=== PATIENT | female | born 1985 | race Caucasian/White ===

== ENCOUNTER 2020-08-08 08:03 | Observation (INO) | END 2020-08-08 09:48 | disposition home or self-care (01) | LOC: 1NENULAB | PROVIDERS: ADMIT Student in an Organized Health Care Education/Training Program; ATTEND Student in an Organized Health Care Education/Training Program ==

== ENCOUNTER 2020-08-12 10:49 | Inpatient (IN) ==
[~2020-08-12 10:49] MED LIST: *HR* FentaNYL (PF) 100 MCG/2 ML VIAL IVP PRN; Azithromycin 500 MG in 0.9 % Sodium Chloride 250 ML IVPB ONE; Famotidine 20 MG/2 ML VIAL IVP PRN; Lidocaine 1% 20 ML MDV ID PRN; Metoclopramide 10 MG/2 ML VIAL IVP PRN; Naloxone 0.4 MG/ML INJ IVP PRN; Ondansetron 4 MG/2 ML VIAL IVP PRN; Oxytocin 20 units/ LR 1000 mL 20 UNIT/1,000 ML BAG IVC SCH; Ringers Solution, Lactated 1,000 ML IVC SCH
[2020-08-12 11:42] LABS: Basophils # 0.1 K/mcL (0.0-0.2); Basophils % 0.6 %; Eosinophils % 0.5 %; Hematocrit 37.1 % (35.3-44.9); Hemoglobin 12.3 g/dL (11.5-15.4); Immature Granulocytes % 0.4 % (0-4); Lymphocytes # 1.8 K/mcL (0.6-4.6); Lymphocytes % 21.8 %; Mean Corpuscular HGB Conc 33.2 g/dL (31.6-35.5); Mean Corpuscular Hemoglobin 27.8 pg (28.0-33.3); Mean Corpuscular Volume 83.9 fL (83.0-100.0); Mean Platelet Volume 11.1 fL (9.4-12.4); Monocytes # 0.6 K/mcL (0.0-1.3); Monocytes % 6.9 %; Neutrophils # 5.6 K/mcL (1.6-8.9); Platelet Count 193 K/mcL (140-400); Red Blood Count 4.42 M/mcL (3.82-4.97); Red Cell Distribution Width 13.4 % (11.5-14.5); Segmented Neutrophils % 69.8 %; White Blood Count 8.1 K/mcL (4.3-11.1)
[2020-08-12] MEDS ORDERED: *HR* FentaNYL (PF) 100 MCG/2 ML VIAL EP ONE (12:12)
[2020-08-12] MEDS ORDERED: EPHEDrine 50 MG/ML VIAL IVP PRN (12:12)
[2020-08-12] MEDS ORDERED: Epidural Premix (fent/bupiv) 110 ML EP SCH (12:15)
[2020-08-12] MEDS ORDERED: Famotidine 20 MG/2 ML VIAL IVP ONE (12:24)
[2020-08-12 13:37] LABS: Amphetamine Screen,Urine Negative ng/mL (Cutoff=1000); Barbiturate Screen,Urine Negative ng/mL (Cutoff=200); Benzodiazepines Screen,Urine Negative ng/mL (Cutoff=200); Cannabinoid Screen,Urine Negative ng/mL (Cutoff = 50); Cocaine Screen,Urine Negative ng/mL (Cutoff= 300); Opiate Screen,Urine Negative ng/mL (Cutoff=300); Phencyclidine Screen,Urine Negative ng/mL (Cutoff=25)
[2020-08-12] MEDS ORDERED: Ringers Solution, Lactated 1,000 ML ONE (16:32)
[2020-08-12] MEDS ORDERED: Acetaminophen 325 MG TABLET PO ONE (17:24)
[2020-08-13] MEDS ORDERED: Lanolin 7 G OINT...G. TP PRN (01:53)
[2020-08-13] MEDS ORDERED: Measles/Mumps/Rubella Vacc 0.5 ML VIAL SQ PRN (01:53)
[2020-08-13] MEDS ORDERED: Oxytocin 20 units/ LR 1000 mL 20 UNIT/1,000 ML BAG IVC ONE (01:53)
[2020-08-13] MEDS ORDERED: Oxytocin 20 units/ LR 1000 mL 20 UNIT/1,000 ML BAG IVC SCH (01:53)
[2020-08-13] MEDS ORDERED: Rho Immune Globulin 1,500 UNIT SYRINGE IM PRN (01:53)
[2020-08-13] MEDS: Ibuprofen 600 MG TABLET PO PRN ×3 (07:47→20:00)
[2020-08-13] MEDS: Prenatal Vit/FA 1 EACH TABLET PO SCH (07:47)
[2020-08-13] MEDS ORDERED: Benzocaine/Menthol 56 GM AEROSOL SPRAY TP PRN (11:44)
[2020-08-13] MEDS: Acetaminophen 325 MG TABLET PO PRN ×2 (11:58→18:06)
[2020-08-14] MEDS: Acetaminophen 325 MG TABLET PO PRN ×2 (00:33→06:56)
[2020-08-14] MEDS: Ibuprofen 600 MG TABLET PO PRN ×2 (03:12→09:22)
[2020-08-14 07:46] VITALS: BP 127/79
[2020-08-14] MEDS: Prenatal Vit/FA 1 EACH TABLET PO SCH (09:22)
== END 2020-08-14 12:34 | disposition home or self-care (01) | DRG 807 ==
LOC: 1NENULAB → 1NENUOBS 08-13 01:52
PROVIDERS: ADMIT Obstetrics & Gynecology; ATTEND Obstetrics & Gynecology

== ENCOUNTER 2021-05-15 09:18 | Observation (INO) ==
[2021-05-15] MEDS ORDERED: Isovue-370 500 ML BOTTLE IVP ONE (09:57)
[2021-05-15 10:03] LABS: Basophils # 0.1 K/mcL (0.0-0.2); Basophils % 0.5 %; Eosinophils # 0.1 K/mcL (0.0-0.6); Eosinophils % 1.2 %; Hematocrit 41.3 % (35.3-44.9); Hemoglobin 13.8 g/dL (11.5-15.4); Immature Granulocytes % 0.3 % (0-4); Lymphocytes # 2.4 K/mcL (0.6-4.6); Lymphocytes % 20.5 %; Mean Corpuscular HGB Conc 33.4 g/dL (31.6-35.5); Mean Corpuscular Hemoglobin 28.3 pg (28.0-33.3); Mean Corpuscular Volume 84.8 fL (83.0-100.0); Mean Platelet Volume 9.9 fL (9.4-12.4); Monocytes # 0.6 K/mcL (0.0-1.3); Monocytes % 5.1 %; Neutrophils # 8.3 K/mcL (1.6-8.9); Platelet Count 343 K/mcL (140-400); Red Blood Count 4.87 M/mcL (3.82-4.97); Red Cell Distribution Width 12.4 % (11.5-14.5); Segmented Neutrophils % 72.4 %; White Blood Count 11.5 K/mcL (4.3-11.1)
[2021-05-15 10:16] LABS: Bilirubin,Urine Negative (Negative); Blood,Urine Negative (Negative); Clarity,Urine Clear (Clear); Color,Urine Light-Yellow (Yellow); Glucose,Urine (UA) Normal (Normal); Ketones,Urine Negative (Negative); Leukocyte Esterase,Urine Negative (Negative); Nitrite,Urine Negative (Negative); Protein,Urine Negative (Neg-Trace); Specific Gravity,Urine 1.011 (1.010-1.025); Urobilinogen,Urine Normal (Normal)
[2021-05-15 10:22] LABS: Alanine Aminotransferase 20 Units/L (7-52); Albumin 4.7 g/dL (3.5-5.7); Albumin/Globulin Ratio 1.7 (1.1-2.2); Alkaline Phosphatase 72 Units/L (34-104); Amylase 24 Units/L (29-103); Aspartate Amino Transferase 13 Units/L (13-39); BUN/Creatinine Ratio 11 (6-26); Bilirubin,Direct 0.1 mg/dL (0.0-0.2); Bilirubin,Indirect 0.7 mg/dL (0.0-1.0); Bilirubin,Total 0.8 mg/dL (0.3-1.0); Blood Urea Nitrogen 8 mg/dL (6-20); Calcium 9.8 mg/dL (8.6-10.3); Carbon Dioxide 29 mEq/L (23-29); Chloride 103 mEq/L (98-107); Globulin 2.8 g/dL (2.4-3.5); Glucose 117 mg/dL (70-105); Lipase 22 Units/L (11-82); Osmolality,Calculated 287 (280-300); Potassium 3.5 mEq/L (3.5-5.1); Sodium 139 mEq/L (136-145); Total Protein 7.5 g/dL (6.4-8.9); eGFR For African Americans > 60 (> 60); eGFR For Non-African Americans > 60 (> 60)
[2021-05-15] MEDS ORDERED: Piperacillin/Tazobactam 3.375 GM in Water for inj. (sterile) 20 ML IVP ONE (11:50)
[2021-05-15] MEDS ORDERED: 0.9 % Sodium Chloride 1,000 ML IVC SCH (12:00)
[2021-05-15] MEDS ORDERED: Ondansetron 4 MG/2 ML VIAL IVP PRN ×3 (14:03→21:24)
[2021-05-15] MEDS ORDERED: Pantoprazole 40 MG VIAL IVP SCH (14:15)
[2021-05-15] MEDS ORDERED: Acetaminophen IV 1,000 MG/100 ML BAG IVPB SCH (15:00)
[2021-05-15] MEDS ORDERED: Piperacillin/Tazobactam 3.375 GM in 0.9 % Sodium Chloride Mini Bag 100 ML IVPB SCH ×2 (16:00→20:00)
[2021-05-15] MEDS ORDERED: Acetaminophen IV 1,000 MG/100 ML BAG IVPB ONE (17:38)
[2021-05-15] MEDS ORDERED: Famotidine 20 MG/2 ML VIAL ONE (17:38)
[2021-05-15] MEDS ORDERED: Lidocaine HCL 4 ML Topical Solution (Laryng-O-Jet Kit Sterile Pak) TP ONE (17:50)
[2021-05-15] MEDS ORDERED: *HR* FentaNYL (PF) 100 MCG/2 ML VIAL ONE ×2 (17:50→19:30)
[2021-05-15] MEDS ORDERED: *HR* Propofol 200 MG/20 ML VIAL IVP ONE (17:51)
[2021-05-15] MEDS ORDERED: *HR* HYDROmorphone PF 0.5 MG/0.5 ML SYRINGE IVP PRN (17:51)
[2021-05-15] MEDS ORDERED: *HR* Midazolam HCl 2 MG/2 ML VIAL ONE (17:51)
[2021-05-15] MEDS ORDERED: *HR* Succinylcholine 200 MG/10 ML VIAL IVP ONE (17:52)
[2021-05-15] MEDS ORDERED: Lidocaine -MPF 2% 2 ML VIAL ONE (17:52)
[2021-05-15] MEDS ORDERED: *HR* Rocuronium Bromide 50 MG/5 ML VIAL ONE ×2 (17:52→19:19)
[2021-05-15] MEDS ORDERED: *HR* HYDROMORPHONE 2 MG/ML VIAL ONE ×2 (18:44→19:30)
[2021-05-15] MEDS ORDERED: Ketorolac 30 MG/ML VIAL ONE (18:58)
[2021-05-15] MEDS ORDERED: *HR* Labetalol 20 MG/4 ML SYRINGE IVP ONE (19:13)
[2021-05-15] MEDS ORDERED: Albuterol 2.5 MG/3 ML NEBULIZER IH ONE (20:42)
[2021-05-15] MEDS ORDERED: Albuterol 2.5 MG/3 ML NEBULIZER ONE (20:43)
[2021-05-15] MEDS: 0.9 % Sodium Chloride 1,000 ML IVC SCH (22:09)
[2021-05-15] MEDS: Acetaminophen IV 1,000 MG/100 ML BAG IVPB SCH (23:22)
[2021-05-16] MEDS: Piperacillin/Tazobactam 3.375 GM in 0.9 % Sodium Chloride Mini Bag 100 ML IVPB SCH ×2 (03:01→12:30)
[2021-05-16] MEDS: Acetaminophen IV 1,000 MG/100 ML BAG IVPB SCH ×2 (06:23→12:25)
[2021-05-16] MEDS ORDERED: Pantoprazole 40 MG VIAL IVP SCH (09:00)
[2021-05-16] MEDS: 0.9 % Sodium Chloride 1,000 ML IVC SCH (09:38)
[2021-05-16 10:17] VITALS: BP 125/83; PULSE 71; TEMP 97.9; O2SAT 95
[2021-05-16] MEDS ORDERED: MOM Conc 10 ML UD.LIQ PO SCH (12:45)
[2021-05-16 13:53] LABS: Basophils % 0.2 %; Hematocrit 36.7 % (35.3-44.9); Immature Granulocytes % 0.4 % (0-4); Lymphocytes # 1.6 K/mcL (0.6-4.6); Lymphocytes % 12.8 %; Mean Corpuscular HGB Conc 32.7 g/dL (31.6-35.5); Mean Corpuscular Hemoglobin 27.8 pg (28.0-33.3); Mean Platelet Volume 9.9 fL (9.4-12.4); Monocytes # 0.7 K/mcL (0.0-1.3); Monocytes % 5.7 %; Neutrophils # 9.9 K/mcL (1.6-8.9); Platelet Count 296 K/mcL (140-400); Red Blood Count 4.32 M/mcL (3.82-4.97); Red Cell Distribution Width 12.4 % (11.5-14.5); Segmented Neutrophils % 80.9 %; White Blood Count 12.2 K/mcL (4.3-11.1)
== END 2021-05-16 16:56 | disposition home or self-care (01) ==
LOC: EMEROOARM 09:18 → 3ANU 09:18
PROVIDERS: ADMIT Surgery; ATTEND Surgery